=== PATIENT | female | born 1935 | race Two or more races ===

== ENCOUNTER 2021-06-21 13:24 | Inpatient (IN) | payer MEDICARE, BC ==
[~2021-06-21] VITALS: Ht 170.2 cm; Wt 57.2 kg
--- NOTE | 2021-06-21 13:29 | NUR ---
TO ER BED 11, BIB [phone], FOUND ON THE FLOOR BY STAFF,NO APPARENT, AAOX1, FACILITY STAFF AT BEDSIDE, CONNECTED TO MONITOR
[2021-06-21] MEDS ORDERED: FLUT16SP (13:48)
[2021-06-21] MEDS ORDERED: ERGO500093 PO (13:48)
[2021-06-21] MEDS ORDERED: LACT-47 PO (13:48)
[2021-06-21] MEDS ORDERED: QUET25TA PO (13:48)
[2021-06-21] MEDS ORDERED: MEGE400O6 PO (13:48)
[2021-06-21] MEDS ORDERED: NEOM1OIN15 TP (13:48)
[2021-06-21] MEDS ORDERED: MELA3TAB41 PO (13:48)
--- NOTE | 2021-06-21 13:52 | NUR ---
WHEELED OUT VIA JB BY [employer] FOR CT SCAN AND XRAY
[2021-06-21 14:01] LABS: BASOPHILS # (AUTO) 0.1 K/uL (0.0-0.2); BASOPHILS % (AUTO) 0.8 % (0.0-2.0); EOSINOPHILS % (AUTO) 1.1 % (0.0-6.0); HEMATOCRIT 36 % (33-45); HEMOGLOBIN 11.9 g/dL (11.5-14.8); LYMPHOCYTES # (AUTO) 3.8 K/uL (0.8-4.8); LYMPHOCYTES % (AUTO) 27.8 % (20.0-44.0); MEAN CORPUSCULAR HGB CONC 33 g/dl (31.0-36.0); MEAN CORPUSCULAR VOLUME 98 fL (82-100); MONOCYTES # (AUTO) 1.1 K/uL (0.1-1.30); MONOCYTES % (AUTO) 8.2 % (2.0-12.0); NEUTROPHILS # (AUTO) 8.4 K/uL (1.8-8.9); NEUTROPHILS % (AUTO) 62.1 % (43.0-81.0); PLATELET COUNT (AUTO) 256 K/uL (150-450); RED BLOOD CELL COUNT(AUTO) 3.64 MIL/uL (4.0-5.2); WHITE BLOOD COUNT (AUTO) 13.6 K/uL (4.3-11.0)
[2021-06-21 14:08] LABS: CALCIUM, SERUM 8.7 mg/dL (8.5-10.1); CARBON DIOXIDE 28 mmol/L (21-32); CHLORIDE 100 mmol/L (98-107); CREATININE 1.2 mg/dL (0.6-1.3); GLUCOSE 141 mg/dL (74-106); POTASSIUM 4.3 mmol/L (3.5-5.1); SODIUM SERUM 137 mmol/L (136-145); UREA NITROGEN, BLOOD 30 mg/dL (7-18)
--- NOTE | 2021-06-21 14:33 | NUR ---
COVID SWAB DONE AND SENT TO LAB
[2021-06-21] MEDS ORDERED: IV NS 0.9% 500 ML BAG IV ONE (15:00)
--- NOTE | 2021-06-21 15:40 | NUR ---
URINE COLLECTED AND SENT TO LAB
[2021-06-21 15:42] LABS: BILIRUBIN,URINE Negative (NEGATIVE); COLOR,URINE YELLOW (YELLOW); LEUKOCYTE ESTERASE ,URINE Negative (NEGATIVE); NITRITE, URINE Negative (NEGATIVE); PROTEIN,URINE Negative (NEGATIVE); UGLUCOSE Negative (NEGATIVE)
--- NOTE | 2021-06-21 16:21 | NUR ---
room 117-1
--- NOTE | 2021-06-21 16:25 | NUR ---
report given to Riddhi MASCORRO
[2021-06-21 17:00] LABS: BACTERIA,URINE None seen /HPF (None Seen); SQUAMOUS EPITHELIAL CELL,UR 0-2 /HPF (None Seen); WBC,URINE 0-2 /HPF (0-3)
--- NOTE | 2021-06-21 17:10 | NUR ---
THE PATIENT IS TRANSFERED TO [facility] IN STABLE CONDITION AND PER POLICY.
--- NOTE | 2021-06-21 17:14 | NUR ---
RN NOTE PATIENT RECEIVED ON THE FLOOR, CONFUSED, ALERT TO SELF. PATIENT ON ROOM AIR WITH NO SIGNS OF LABORED BREATHING AT THIS TIME. REPORT FROM GRACE PANTOJA. WILL CONTINUE TO MONITOR.
[2021-06-21 17:30] VITALS: BP 127/68
[2021-06-21] MEDS: ENOXAPARIN SODIUM 40 MG/0.4 ML DISP.SYRIN SQ SCH (18:28)
[2021-06-21] MEDS: MEGESTROL ACETATE SUSP 400 MG/10 ML UDC PO SCH (18:28)
[2021-06-21] MEDS ORDERED: MAGNESIUM HYDROXIDE 30 ML UDC PO PRN (18:30)
[2021-06-21] MEDS ORDERED: ZOLPIDEM TARTRATE 5 MG TABLET PO SCH ×3 (18:30→21:00)
[2021-06-21] MEDS ORDERED: ONDANSETRON HCL/PF 4 MG/2 ML VIAL IVP PRN (18:30)
[2021-06-21] MEDS ORDERED: ACETAMINOPHEN 325 MG TABLET PO PRN (18:30)
--- NOTE | 2021-06-21 18:55 | NUR ---
RN CLOSING NOTE PATIENT IN BED, CONFUSED, A&OX1, CALM AT THIS TIME. PATIENT ON ROM AIR WITH NO SIGNS OF LABORED BREATHING AT THIS TIME. RIGHT FA 18G IN PLACE, PATENT WITH NO SIGNS OF INFILTRATION AND RUNNING NS AT 75 CC/HR. ALL NEEDS ATTENDED DURING SHIFT. BED LOCKED AND IN LOWEST POSITION, CALL LIGHT WITHIN REACH, 3 SIDE RAILS UP. WILL ENDORSE TO LIMNOLOGIST NURSE.
--- NOTE | 2021-06-21 19:20 | NUR ---
RN OPENING NOTE RECEIVED CARE OF PATIENT WHILE IN BED, ANXIOUS AND CONFUSED, A/O X1. PATIENT ON ROOM AIR, NO SOB NOTED, O2 SAT AT THIS TIME 96%. NO SIGNIFICANT FINDINGS UPON INITIAL NURSING ASSESSMENTS. RIGHT FA 18G IN PLACE, PATENT WITH NO SIGNS OF INFILTRATION AND RUNNING NS AT 75 CC/HR. ALL SAFETY MEASURES PUT IN PLACE, BED ALARM ON, BED LOCKED AND IN LOWEST POSITION, CALL LIGHT WITHIN REACH, 3 SIDE RAILS UP. WILL CONTINUE TO MONITOR FOR ANY CHANGES.
--- NOTE | 2021-06-21 19:30 | NUR ---
RN NOTES ORTHOSTATIC BP TAKEN WHILE PATIENT IS IN SITTING POSITION ON A CHAIR. PATIENT'S READINGS ARE FOLLOWS: BP 125/60, P 65, SPO2 97%, NO SIGNS OF DISTRESS NOTED. WILL CONTINUE TO MONITOR.
[2021-06-21 20:00] VITALS: BP 136/71
[2021-06-22] VITALS: BP 138/65
[2021-06-22] MEDS ORDERED: OLANZAPINE 10 MG VIAL IM ONE (00:30)
[2021-06-22 04:00] VITALS: BP 124/87
[2021-06-22 07:13] LABS: BASOPHILS # (AUTO) 0.1 K/uL (0.0-0.2); BASOPHILS % (AUTO) 0.7 % (0.0-2.0); EOSINOPHILS % (AUTO) 0.9 % (0.0-6.0); HEMATOCRIT 39 % (33-45); HEMOGLOBIN 13.1 g/dL (11.5-14.8); LYMPHOCYTES # (AUTO) 3.1 K/uL (0.8-4.8); LYMPHOCYTES % (AUTO) 23.1 % (20.0-44.0); MEAN CORPUSCULAR HGB CONC 34 g/dl (31.0-36.0); MEAN CORPUSCULAR VOLUME 98 fL (82-100); MONOCYTES % (AUTO) 7.6 % (2.0-12.0); NEUTROPHILS # (AUTO) 9.2 K/uL (1.8-8.9); NEUTROPHILS % (AUTO) 67.7 % (43.0-81.0); PLATELET COUNT (AUTO) 244 K/uL (150-450); RED BLOOD CELL COUNT(AUTO) 3.95 MIL/uL (4.0-5.2); WHITE BLOOD COUNT (AUTO) 13.6 K/uL (4.3-11.0)
[2021-06-22 07:43] LABS: CALCIUM, SERUM 8.8 mg/dL (8.5-10.1); MAGNESIUM 2.1 mg/dL (1.8-2.4); POTASSIUM 4.5 mmol/L (3.5-5.1)
[2021-06-22 08:00] VITALS: BP 146/68
[2021-06-22] MEDS: MEGESTROL ACETATE SUSP 400 MG/10 ML UDC PO SCH ×2 (09:51→17:56)
[2021-06-22] MEDS: FLUTICASONE PROPIONATE 16 GM BOTTLE NS SCH (09:52)
[2021-06-22] MEDS: ENSURE CLEAR 237 ML LIQUID (MIX BERRY) PO SCH ×3 (09:52→17:57)
--- NOTE | 2021-06-22 10:27 | NUR ---
WOUND CARE CONSULT: REVIEWED CHART, NURSING DOCUMENTATION AND PHOTO WHICH INDICATES LEFT SHOULDER DRY ABRASION, PRESENT ON ADMISSION. RECOMMENDATIONS MADE FOR SKIN PROTECTION. DISCUSSED WITH NURSING STAFF. MD IN AGREEMENT WITH PLAN OF CARE.
[2021-06-22] MEDS ORDERED: Z GUARD REMEDY 4 OZ OINT TP PRN (10:30)
--- NOTE | 2021-06-22 11:13 | NUR ---
RN OPENING NOTE RECEIVED PATIENT WHILE IN BED, RELAXED AND COOPERATIVE. A/O X1. PATIENT ON ROOM AIR, NO SOB NOTED, O2 SAT AT THIS TIME 97%. RIGHT FA 18G IN PLACE, PATENT WITH NO SIGNS OF INFILTRATION AND RUNNING NS AT 75 CC/HR. ALL SAFETY MEASURES PUT IN PLACE, BED ALARM ON, BED LOCKED AND IN LOWEST POSITION, CALL LIGHT WITHIN REACH, 3 SIDE RAILS UP. WILL CONTINUE TO MONITOR.
[2021-06-22 12:00] VITALS: BP 105/55
[2021-06-22] MEDS ORDERED: OLANZAPINE 10 MG VIAL IM PRN (14:00)
[2021-06-22] MEDS ORDERED: TEMAZEPAM 7.5 MG CAPSULE PO PRN (14:00)
--- NOTE | 2021-06-22 14:45 | NUR ---
RN NOTES FOUND PT RESISTING RESTRAINTS WITH NEW SKIN TEAR ON LEFT FOREARM AREA. BANDAGE APPLIED. Addendum: 06/22/21 at 1513 by CODY BRAVO RN NOTIFIED. WOUND CONSULT PUT IN.
[2021-06-22] MEDS: risperiDONE 1 MG TABLET PO SCH ×2 (14:50→17:57)
[2021-06-22 16:00] VITALS: BP 125/59
[2021-06-22] MEDS ORDERED: ACETAMINOPHEN 650 MG/20.3 ML UDC NG ONE (17:30)
[2021-06-22] MEDS: BENZTROPINE MESYLATE (1 MG) 1 MG TABLET PO SCH (17:57)
[2021-06-22] MEDS ORDERED: QUETIAPINE FUMARATE 25 MG TABLET PO SCH (18:00)
--- NOTE | 2021-06-22 19:25 | NUR ---
RN OPENING NOTES RECEIVED CARE OF PATIENT WHILE IN BED, ANXIOUS AND CONFUSED, A/O X1. PATIENT ON ROOM AIR, NO SOB NOTED, O2 SAT AT THIS TIME 97%. NO SIGNIFICANT FINDINGS UPON INITIAL NURSING ASSESSMENTS. PT ON BILATERAL SOFT WRIST RESTRAINTS, NO SIGNS OF CIRCULATORY COMPLICATIONS AT THIS TIME. ALL SAFETY MEASURES PUT IN PLACE, BED ALARM ON, BED LOCKED AND IN LOWEST POSITION, CALL LIGHT WITHIN REACH, 3 SIDE RAILS UP. WILL CONTINUE TO MONITOR FOR ANY CHANGES.
--- NOTE | 2021-06-22 19:30 | NUR ---
RN CLOSING NOTE PATIENT IN BED, CONFUSED, A&OX1, CALM AT THIS TIME. PATIENT ON ROOM AIR WITH NO SIGNS OF LABORED BREATHING AT THIS TIME. ALL NEEDS ATTENDED DURING SHIFT. BED LOCKED AND IN LOWEST POSITION, CALL LIGHT WITHIN REACH, 3 SIDE RAILS UP. WILL ENDORSE TO PARALEGAL SPECIALIST NURSE.
[2021-06-22 20:00] VITALS: BP 128/65
[2021-06-22] MEDS: IV NS 0.9% 1,000 ML IV PRN (20:37)
[2021-06-22] MEDS: ENOXAPARIN SODIUM 40 MG/0.4 ML DISP.SYRIN SQ SCH (20:42)
[2021-06-23] VITALS: BP 148/75
[2021-06-23 04:00] VITALS: BP 110/78
--- NOTE | 2021-06-23 07:57 | NUR ---
RN OPENING NOTE PATIENT RECEIVED IN BED, RESTING. PATIENT ON ROOM AIR WITH NO SIGNS OF LABORED BREATHING AT THIS TIME. BILATERAL SOFT WRIST RESTRAINS ON, SKIN WARM AND INTACT. LEFT FA 24G PIV IN PLACE, PATENT WITH NO SIGNS OF INFILTRATION AND RUNNING NS AT 75 CC/HR. NO SIGNS OF DISTRESS NOTED AT THIS TIME. BED LOCKED AND IN LOWEST POSITION, CALL LIGHT WITHIN REACH, 3 SIDE RAILS UP. ALL SAFETY MEASURES IMPLEMENTED. WILL CONTINUE TO MONITOR.
[2021-06-23 08:00] VITALS: BP 146/74
--- NOTE | 2021-06-23 08:30 | NUR ---
WOUND CARE CONSULT: PT PRESENTS WITH DRY ABRASION TO LEFT SHOULDER, PRESENT ON ADMISSION. CONTINUE PRESENT SKIN PROTECTION MEASURES. DRY ABRASION NOTED TO RT ARM WITHOUT DRAINAGE, TENDERNESS OR ERYTHEMA. PT IS INCONTINENT. RECOMMENDATIONS MADE FOR SKIN PROTECTION AND DISCUSSED WITH NURSING STAFF. MD IN AGREEMENT WITH PLAN OF CARE.
[2021-06-23 08:49] LABS: BASOPHILS # (AUTO) 0.1 K/uL (0.0-0.2); BASOPHILS % (AUTO) 0.8 % (0.0-2.0); EOSINOPHILS % (AUTO) 1.2 % (0.0-6.0); HEMATOCRIT 38 % (33-45); HEMOGLOBIN 13.1 g/dL (11.5-14.8); LYMPHOCYTES # (AUTO) 3.5 K/uL (0.8-4.8); LYMPHOCYTES % (AUTO) 25.5 % (20.0-44.0); MEAN CORPUSCULAR HGB CONC 34 g/dl (31.0-36.0); MEAN CORPUSCULAR VOLUME 98 fL (82-100); MONOCYTES # (AUTO) 0.9 K/uL (0.1-1.30); MONOCYTES % (AUTO) 6.4 % (2.0-12.0); NEUTROPHILS # (AUTO) 9.2 K/uL (1.8-8.9); NEUTROPHILS % (AUTO) 66.1 % (43.0-81.0); PLATELET COUNT (AUTO) 240 K/uL (150-450); WHITE BLOOD COUNT (AUTO) 13.9 K/uL (4.3-11.0)
--- NOTE | 2021-06-23 08:52 | NUR ---
per [facility] pt covid negative.
[2021-06-23] MEDS: ENSURE CLEAR 237 ML LIQUID (MIX BERRY) PO SCH ×2 (08:55→12:16)
[2021-06-23] MEDS: risperiDONE 1 MG TABLET PO SCH ×2 (09:03→12:18)
[2021-06-23] MEDS: IV NS 0.9% 1,000 ML IV PRN (09:03)
[2021-06-23] MEDS: FLUTICASONE PROPIONATE 16 GM BOTTLE NS SCH (09:03)
[2021-06-23] MEDS: MEGESTROL ACETATE SUSP 400 MG/10 ML UDC PO SCH (09:03)
[2021-06-23] MEDS: BENZTROPINE MESYLATE (1 MG) 1 MG TABLET PO SCH (09:03)
[2021-06-23 10:03] LABS: CALCIUM, SERUM 8.6 mg/dL (8.5-10.1); CREATININE 0.9 mg/dL (0.6-1.3); POTASSIUM 4.2 mmol/L (3.5-5.1)
[2021-06-23] MEDS ORDERED: CEFTRIAXONE 1 G in IV D5W 50 ML IV SCH (11:00)
[2021-06-23] MEDS ORDERED: AZIT250T13 PO (13:05)
[2021-06-23] MEDS ORDERED: RISP1TAB7 PO (13:06)
[2021-06-23] MEDS ORDERED: BENZ1TAB7 PO (13:06)
--- NOTE | 2021-06-23 14:49 | NUR ---
RN NOTE PATIENT DISCHARGED PER ORDER. PATIENT MEDICALLY STABLE AT TIME OF DISCHARGE, TO RETURN TO [facility]. RESPONSIBLE GREEN PARTY AWARE OF TRANSFER. IV LINE REMOVED. PATIENT LEFT FACILITY THROUGH AMBULANCE WITH EMT STAFF.
[2021-06-24] MEDS ORDERED: ERGOCALCIFEROL (VITAMIN D 2) 50,000 UNIT CAPSULE PO SCH (18:30)
== END 2021-06-23 15:00 | DRG 177 ==
LOC: ER 13:24 → TELE1 16:38 → MEDSG1 06-23 10:11
PROVIDERS: ADMIT Nurse Practitioner Acute Care; ATTEND Nurse Practitioner Acute Care
DX: J15.6 Pneumonia due to other Gram-negative bacteria (principal); G93.41 Metabolic encephalopathy; J98.11 Atelectasis; E86.0 Dehydration; D72.829 Elevated white blood cell count, unspecified; Z20.822 Contact with and (suspected) exposure to COVID-19; F03.90 Unspecified dementia, unspecified severity, without behavioral disturbance, psychotic disturbance, mood disturbance, and anxiety; J32.0 Chronic maxillary sinusitis; D64.9 Anemia, unspecified; Z79.899 Other long term (current) drug therapy; F29 Unspecified psychosis not due to a substance or known physiological condition; K44.9 Diaphragmatic hernia without obstruction or gangrene; R79.89 Other specified abnormal findings of blood chemistry; J84.10 Pulmonary fibrosis, unspecified; W03.XXXA Other fall on same level due to collision with another person, initial encounter; Y92.129 Unspecified place in nursing home as the place of occurrence of the external cause; M24.412 Recurrent dislocation, left shoulder
CPT/HCPCS: 36415; 70450-TC; 71045-TC; 73030-TC; 80048-TC; 80061-TC; 81001; 83735-TC; 84100-TC; 84484-TC; 85025-TC; 87081-TC; 92526; 92611-TC; 93307-TC; 97112-TC; 97116-TC; 97530-TC; G0378; J0696; J1650; J3490; J7030; J7040; J7060; U0003